=== PATIENT | female | born 1935 | race Two or more races ===

== ENCOUNTER 2020-12-21 16:28 | Inpatient (IN) | payer OTHER, MEDICAID ==
[~2020-12-21] VITALS: Ht 160 cm; Wt 51.6 kg
[~2020-12-21 16:28] MED LIST: ATOR10TA52 PO; GLIP5TAB12 PO; HYDR25TA5 PO; LEVO50TA7 PO; SITA100T7 PO
[2020-12-21] MEDS ORDERED: LORazepam 2MG/ML-1ML VIAL IV ONE (17:15)
[2020-12-21] MEDS ORDERED: SODIUM CHLORIDE 0.9% 1,000 ML IVB ONE (17:15)
[2020-12-21 17:40] LABS: Basophils # (auto) 0 10 ^3/uL (0-0.2); Basophils % (auto) 0.7 % (0.0-2.0); Eosinophils # (auto) 0 10 ^3/uL (0-0.8); Eosinophils % (auto) 0.3 % (0.0-7.0); Hematocrit 36.2 % (36.0-46.0); Hemoglobin 11.9 g/dL (12.2-16.2); Lymphocytes # (auto) 1.2 10 ^3/uL (0.4-5.4); Mean Corpuscular Hemoglobin 32.1 pg (28.0-32.0); Mean Corpuscular Hgb Conc. 32.9 g/dL (32.0-36.0); Mean Corpuscular Volume 97.8 fL (80.0-100.0); Monocytes # (auto) 0.3 10 ^3/uL (0-1.3); Neutrophils # (auto) 5.1 10 ^3/uL (1.6-8.6); Red Cell Distribution Width 13.1 % (11.8-14.3); White Blood Cell 6.7 10^3/uL (4.4-10.8)
[2020-12-21 17:58] LABS: Calcium 8.2 mg/dL (8.5-10.1); Magnesium 2.4 mg/dL (1.6-2.6); Potassium 4.3 mmol/L (3.5-5.1)
[2020-12-21 18:02] LABS: BUN/Creatinine Ratio 20.5; Bilirubin, Total 0.3 mg/dL (0.2-1.0); Total Protein 6.8 g/dL (6.4-8.2)
[2020-12-21 19:04] LABS: Urine Bacteria NONE SEEN /hpf (None Seen); Urine Blood Negative /uL (Negative); Urine Specific Gravity 1.024 (1.001-1.035); Urine WBC <1 /hpf (0 - 5)
[2020-12-21 19:15] LABS: Alcohol, Urine < 3.0 mg/dL (0-10); Amphetamine Screen, Urine NEGATIVE (NEGATIVE); Barbiturate Scree,Urine NEGATIVE (NEGATIVE); Benzodiazephine Screen, Urine POSITIVE (NEGATIVE); Cannabinoid Screen, Urine NEGATIVE (NEGATIVE); Cocaine Screen, Urine NEGATIVE (NEGATIVE); Phencyclidine Screen, Urine NEGATIVE (NEGATIVE)
[2020-12-21 19:23] LABS: Opiate Scree,Urine NEGATIVE (NEGATIVE)
[2020-12-21] MEDS ORDERED: DEXTROSE (50%) 50ML SYRG IV PRN (21:30)
[2020-12-21] MEDS ORDERED: ACETAMINOPHEN 325 MG TAB PO PRN (21:30)
[2020-12-21] MEDS ORDERED: ONDANSETRON HCL 4 MG/2 ML VIAL IV PRN (21:30)
[2020-12-21] MEDS ORDERED: ATORVASTATIN 20 MG TAB PO SCH (22:00)
[2020-12-21] MEDS ORDERED: HALOPERIDOL LACTATE 5 MG/ML INJ VIAL IM ONE (23:15)
[2020-12-22] MEDS ORDERED: LORazepam 2MG/ML-1ML VIAL IV ONE (00:30)
[2020-12-22] MEDS: InsuLIN REG 1unit/0.01ml Soln (100units/ml) SC SCH ×7 (00:37→22:00)
[2020-12-22 05:00] VITALS: BP 152/79
[2020-12-22] MEDS: ACCU-CHEK COMFORT CURVE STRIP VI SCH ×7 (05:41→22:00)
[2020-12-22] MEDS: LEVOTHYROXINE SODIUM 50 MCG TAB PO SCH (06:41)
[2020-12-22 08:07] LABS: Basophils # (auto) 0.1 10 ^3/uL (0-0.2); Basophils % (auto) 0.6 % (0.0-2.0); Eosinophils # (auto) 0 10 ^3/uL (0-0.8); Eosinophils % (auto) 0.4 % (0.0-7.0); Hematocrit 38.3 % (36.0-46.0); Hemoglobin 12.9 g/dL (12.2-16.2); Lymphocytes # (auto) 1.8 10 ^3/uL (0.4-5.4); Lymphocytes % (auto) 22.4 % (10.0-50.0); Mean Corpuscular Hemoglobin 32.5 pg (28.0-32.0); Mean Corpuscular Hgb Conc. 33.8 g/dL (32.0-36.0); Mean Corpuscular Volume 96.1 fL (80.0-100.0); Monocytes # (auto) 0.7 10 ^3/uL (0-1.3); Neutrophils # (auto) 5.6 10 ^3/uL (1.6-8.6); Neutrophils % (auto) 68.6 % (37.0-80.0); Nucleated Red Blood Cells % 0.1 %; Red Blood Cells 3.98 10^6/uL (4.0-5.20); Red Cell Distribution Width 13.4 % (11.8-14.3); White Blood Cell 8.2 10^3/uL (4.4-10.8)
[2020-12-22 08:29] LABS: BUN/Creatinine Ratio 19.3; Calcium 9.5 mg/dL (8.5-10.1); Potassium 3.7 mmol/L (3.5-5.1)
[2020-12-22] MEDS ORDERED: D5W/SOD CHLO 0.9% 1,000 ML IV ONE (08:45)
[2020-12-22 09:17] VITALS: BP 126/79
[2020-12-22] MEDS ORDERED: D5W 5% 1,000 ML IV SCH (09:30)
[2020-12-22] MEDS: PANTOPRAZOLE 40 MG TAB PO SCH (10:00)
[2020-12-22] MEDS: HCTZ 25 MG TAB PO SCH (10:00)
[2020-12-22] MEDS ORDERED: DEXTROSE (50%) 50ML SYRG IV PRN (10:15)
[2020-12-22] MEDS ORDERED: ENOXAPARIN SOD 30 MG/0.3 ML SYRINGE SC ONE (10:30)
[2020-12-22 10:35] LABS: Folate (Folic Acid) 14.52 ng/mL (5.38-24)
[2020-12-22 10:54] LABS: Creatinine, Urine 49 mg/dL (30.0-125.0); Sodium Urine 49 mmol/L (40-220)
[2020-12-22 11:34] LABS: Cholesterol 212 mg/dL (< 200); HDL Cholesterol 63 mg/dL (40-59); LDL Cholesterol 131 mg/dL (< 100); Triglycerides 115 mg/dL (< 150)
[2020-12-22 12:36] VITALS: BP 134/69
[2020-12-22 17:00] VITALS: BP 143/78
[2020-12-22 20:00] VITALS: BP 112/68
[2020-12-22 22:00] VITALS: BP 112/68
[2020-12-22] MEDS: ATORVASTATIN 20 MG TAB PO SCH (22:00)
[2020-12-23 05:05] VITALS: BP_SYST 112; BP_SYST 120; BP_DIAS 66; BP_DIAS 68
[2020-12-23] MEDS: InsuLIN REG 1unit/0.01ml Soln (100units/ml) SC SCH ×4 (06:40→17:00)
[2020-12-23 07:00] LABS: Basophils # (auto) 0 10 ^3/uL (0-0.2); Basophils % (auto) 0.5 % (0.0-2.0); Eosinophils # (auto) 0 10 ^3/uL (0-0.8); Eosinophils % (auto) 0.3 % (0.0-7.0); Hematocrit 39.5 % (36.0-46.0); Hemoglobin 13.3 g/dL (12.2-16.2); Lymphocytes # (auto) 1.1 10 ^3/uL (0.4-5.4); Lymphocytes % (auto) 15.2 % (10.0-50.0); Mean Corpuscular Hemoglobin 32.7 pg (28.0-32.0); Mean Corpuscular Hgb Conc. 33.6 g/dL (32.0-36.0); Mean Corpuscular Volume 97.3 fL (80.0-100.0); Monocytes # (auto) 0.4 10 ^3/uL (0-1.3); Monocytes % (auto) 5.6 % (0.0-12.0); Neutrophils # (auto) 5.8 10 ^3/uL (1.6-8.6); Neutrophils % (auto) 78.4 % (37.0-80.0); Red Blood Cells 4.06 10^6/uL (4.0-5.20); Red Cell Distribution Width 13.3 % (11.8-14.3); White Blood Cell 7.4 10^3/uL (4.4-10.8)
[2020-12-23] MEDS: LEVOTHYROXINE SODIUM 50 MCG TAB PO SCH (07:00)
[2020-12-23] MEDS: ACCU-CHEK COMFORT CURVE STRIP VI SCH ×4 (07:00→22:00)
[2020-12-23 07:18] LABS: BUN/Creatinine Ratio 13.6; Calcium 9.7 mg/dL (8.5-10.1); Magnesium 2.4 mg/dL (1.6-2.6); Potassium 3.9 mmol/L (3.5-5.1)
[2020-12-23 08:30] VITALS: BP 127/67
[2020-12-23] MEDS: PANTOPRAZOLE 40 MG TAB PO SCH (10:00)
[2020-12-23] MEDS: ENOXAPARIN SOD 30 MG/0.3 ML SYRINGE SC SCH (10:00)
[2020-12-23] MEDS: HCTZ 25 MG TAB PO SCH (10:00)
[2020-12-23] MEDS ORDERED: ERGOCALCIFEROL 50,000 UNIT(1.25MG) CAP PO SCH (10:00)
[2020-12-23] MEDS: D5W 5% 1,000 ML IV SCH (11:45)
[2020-12-23 13:00] VITALS: BP 120/61
[2020-12-23 17:00] VITALS: BP 104/54
[2020-12-23 20:00] VITALS: BP 105/73
[2020-12-23 22:00] VITALS: BP 105/73
[2020-12-23] MEDS: ATORVASTATIN 20 MG TAB PO SCH (22:00)
[2020-12-23] MEDS ORDERED: DONEPEZIL HYDROCHLORIDE 5 MG TAB PO SCH (22:30)
[2020-12-23] MEDS ORDERED: MIRTAZAPINE 30 MG TAB PO SCH (22:30)
[2020-12-24] MEDS: D5W 5% 1,000 ML IV SCH (01:05)
[2020-12-24 05:00] VITALS: BP 117/93
[2020-12-24 06:43] LABS: BUN/Creatinine Ratio 15.3; Calcium 8.9 mg/dL (8.5-10.1); Potassium 3.3 mmol/L (3.5-5.1)
[2020-12-24 06:44] LABS: Magnesium 2.2 mg/dL (1.6-2.6); Phosphorus 2.6 mg/dL (2.5-4.90)
[2020-12-24] MEDS: InsuLIN REG 1unit/0.01ml Soln (100units/ml) SC SCH ×2 (06:52→11:42)
[2020-12-24] MEDS: LEVOTHYROXINE SODIUM 50 MCG TAB PO SCH (06:52)
[2020-12-24] MEDS: ACCU-CHEK COMFORT CURVE STRIP VI SCH ×2 (06:53→11:45)
[2020-12-24] MEDS ORDERED: POTASSIUM CHLORIDE 40 MEQ, LIDOCAINE 1% (LOCAL ANESTH.) 4 ML in SODIUM CHL 0.9% 250 ML IV ONE (08:30)
[2020-12-24 09:00] VITALS: BP 134/62
[2020-12-24] MEDS: PANTOPRAZOLE 40 MG TAB PO SCH (10:00)
[2020-12-24] MEDS: HCTZ 25 MG TAB PO SCH (10:00)
[2020-12-24] MEDS: ENOXAPARIN SOD 30 MG/0.3 ML SYRINGE SC SCH (11:39)
[2020-12-24 13:00] VITALS: BP 118/41
[2020-12-24 16:31] VITALS: BP 139/87
[2020-12-24 17:00] VITALS: BP 139/87
== END 2020-12-24 18:22 | disposition hospice, home (50) | DRG 71 ==
LOC: ER 16:28 → EDBD 16:28 → OVERFLOW 21:18 → CENTRAL 12-22 03:30
PROVIDERS: ADMIT Nurse Practitioner; ATTEND Internal Medicine
DX: G93.41 Metabolic encephalopathy (principal); E87.0 Hyperosmolality and hypernatremia; E44.0 Moderate protein-calorie malnutrition; F03.91 Unspecified dementia, unspecified severity, with behavioral disturbance; N17.9 Acute kidney failure, unspecified; E11.65 Type 2 diabetes mellitus with hyperglycemia; E11.22 Type 2 diabetes mellitus with diabetic chronic kidney disease; E78.5 Hyperlipidemia, unspecified; F17.200 Nicotine dependence, unspecified, uncomplicated; E03.9 Hypothyroidism, unspecified; Z53.20 Procedure and treatment not carried out because of patient's decision for unspecified reasons; Z66 Do not resuscitate; Z87.11 Personal history of peptic ulcer disease; Z83.3 Family history of diabetes mellitus; Z82.0 Family history of epilepsy and other diseases of the nervous system; Z79.899 Other long term (current) drug therapy; Z90.710 Acquired absence of both cervix and uterus; Z20.822 Contact with and (suspected) exposure to COVID-19; Z88.6 Allergy status to analgesic agent; N18.32 Chronic kidney disease, stage 3b; Z79.84 Long term (current) use of oral hypoglycemic drugs; Z90.49 Acquired absence of other specified parts of digestive tract; E55.9 Vitamin D deficiency, unspecified
CPT/HCPCS: 36415; 51702; 70450; 71045; 80048; 80053; 80061; 80307; 81001; 82043; 82140; 82306; 82570; 82607; 82746; 82962; 83036; 83735; 83880; 84100; 84300; 84443; 85025; 87426; 93005; 95819; 96361; 96372; 96374; 96376; 97163; G0378; J1815; J2001; J7042